=== PATIENT | male | born 2005 | race Hispanic/Latino ===

== ENCOUNTER 2025-06-11 11:58 | Emergency (ER) | payer SELFPAY ==
[~2025-06-11] VITALS: Ht 167.6 cm; Wt 99.8 kg
--- NOTE | 2025-06-11 12:19 | ERN ---
ED Note History of Present Illness Stated Complaint: NECK PAIN Chief Complaint: Neck Pain Time Seen by MD: 12:00 Dictation: PATIENT IS A 19-YEAR-OLD MALE COMING IN TODAY WITH HIS GIRLFRIEND WITH COMPLAINTS OF HAVING SOME PAIN TO HIS ANTERIOR NECK LOWER HE HAS HAD FOR ONE WE EK. HE DENIES ANY TRAUMA NO FEVER NO CHILLS NO PAINFUL SWALLOWING. STATES HE IS CONCERNED THAT HE MIGHT HAVE CANCER BECAUSE HIS MOTHER AND GRANDFATHER OF CANCER. 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 NO PALPABLE MASS INTEGUMENTARY: NEGATIVE EXCEPT FOR HPI NEUROLOGICAL/PSYCH: NEGATIVE EXCEPT FOR HPI HEMATOLOGIC/LYMPHATIC: NEGATIVE EXCEPT FOR HPI ALL SYSTEMS NEGATIVE, EXCEPT NOTED ABOVE. 13 POINT REVIEW OF SYSTEMS ASSESSED AND ALL NEGATIVE EXCEPT FOR ABOVE. Initial Vital Sign VS Vital Signs Date Time Temp Pulse Resp B/P (MAP) Pulse Ox O2 Delivery O2 Flow Rate FiO2 06/11/25 12:00 98.4 93 16 126/72 97 Room Air 0 Physical Exam Dictation VITAL SIGNS REVIEWED GENERAL APPEARANCE: ALERT, ORIENTED X 3, NO ACUTE DISTRESS, WELL DEVELOPED, NOURISHED. ANXIOUS HEAD AND FACE: NON-TRAUMATIC. EYES: PERRL, PINK CONJUNCTIVAS, EYELID NO TRAUMA, ANTERIOR CHAMBER WITH ARCUS SENILIS. EARS: PINNAS INTACT AND NO SIGNS OF TRAUMA OR ERYTHEMA EAR CANALS CLEAR AND NO DISCHARGE TM NO ERYTHEMA NOSE: NO DISCHARGE, NO BLEEDING. OROPHARYNX: MOUTH NORMAL, TONGUE PINK, VOICE IS CLEAR PHARYNX CLEAR,NO ERYTHEMA, TONSILS NO EXUDATES, NO ABSCESSES NOTED, MUCOUS MEMBRANE MOIST NECK: SUPPLE, MILD TENDERNESS TO THE ANTERIOR CERVICAL NECK INFERIORLY. NO THYROMEGALY, NO MASSES, NO JVD, NO BRUITS NO ERYTHEM NO INDURATION. BREAST:DEFERRED CHEST:NO TENDERNESS, NO CREPITUS, NO PARADOXICAL MOVEMENT, NO RETRACTIONS LUNGS:CLEAR, WELL-VENTILATED, SYMMETRIC, NO RALES, NO WHEEZING, NO RHONCHI, NO STRIDOR, GOOD BREATH SOUNDS BILATERALLY HEART: REGULAR RATE, REGULAR RHYTHM, NO MURMUR, NO GALLOPS VASCULAR: NO PERIPHERAL EDEMA, ABDOMEN: SOFT, POSITIVE BOWEL SOUNDS, NONDISTENDED, NO GUARDING, NONTENDER, NO REBOUND, NO MASSES NO HEPATOMEGALY, NO SPLENOMEGALY, NO GUEVARA'S SIGN, NO HERNIAS. RECTAL: DEFERRED GENITAL: DEFERRED NEUROLOGICAL: NORMAL SPEECH, MOTOR FUNCTION INTACT, SENSORY FUNCTION INTACT MUSCULOSKELETAL: NECK NONTENDER, FULL RANGE OF MOTION, BACK NONTENDER, FULL RANGE OF MOTION, EXTREMITIES: NONTENDER, FULL RANGE OF MOTION SKIN: COLOR PINK, DRY, NO TURGOR, NO RASH, NO LACERATIONS, NO ABRASIONS, NO CONTUSIONS. LYMPHATIC: DEFERRED Results (Laboratory/Radiology) Laboratory/Radiology EXAM: US examination, one body part CLINICAL HISTORY: TENDERNESS TO ANTERIOR LOWER CERVICAL NECK. NO PALPABLE LESION TECHNIQUE: Real-time ultrasound examination performed with image documentation. COMPARISON: None provided. FINDINGS: Soft Tissue Structures: Few hypoechoic structures, possibly lymph nodes, are seen in the supraclavicular area. The largest measures approximately 5 x 5 x 6 mm. No abnormal internal architecture or necrosis is noted within these nodes. No evidence of matting or conglomeration. No other significant soft tissue mass or collection is identified. IMPRESSION: 1. Few small hypoechoic structures in the supraclavicular area, likely benign lymph nodes. 2. No significant soft tissue mass or collection identified. /[facility] Reviewed?: Yes ED Course ED Course Orders Procedure Category Date Status Time Us Soft Tissue Neck US 06/11/25 Resulted 12:17 Vital Signs Date Time Temp Pulse Resp B/P (MAP) Pulse Ox O2 Delivery O2 Flow Rate FiO2 06/11/25 12:00 98.4 93 16 126/72 97 Room Air 0 Medical Decision Making [facility] 1405/MEDICAL DISCHARGE MAKING BASED ON ULTRASOUND OF ANTERIOR NECK ONLY. PATIENT HAS A LOCALIZE LYMPHADENOPATHY. WE WILL BE GIVEN A LIST OF LOCAL DOCTORS TO FOLLOW UP IN THE NEXT 1-2 DAYS FOR MANAGEMENT DX & DISP Disposition: Discharge Departure Impression: Primary Impression: Cervical lymphadenopathy Condition: Stable Additional Instructions: FOLLOW-UP WITH PRIMARY CARE PROVIDER IN 1 TO 2 DAYS. TAKE MEDICATIONS DIRECTED HERE IN THE EMERGENCY ROOM. OKAY TO CONTINUE HOME MEDICATIONS UNLESS OTHERWISE DISCUSSED DURING YOUR VISIT IN THE EMERGENCY ROOM TODAY. RETURN TO YOUR NEAREST EMERGENCY ROOM IF SYMPTOMS WORSEN OR IF THERE IS NO IMPROVEMENT. CALL 911 IF YOU NEED IMMEDIATE ASSISTANCE. TAKE TYLENOL OR MOTRIN [id number] NEEDED AND IF NO CONTRAINDICATIONS ARE PRESENT. INCREASE ORAL HYDRATION. A WOUND CULTURE OR URINE CULTURE WAS ORDERED HERE IN THE EMERGENCY ROOM DEPARTMENT PLEASE FOLLOW-UP WITH PRIMARY CARE PROVIDER AND ADVISE THEM TO GET REPEAT PORTS FROM OUR FACILITY. IF YOU HAD ANY SIMON WRAP/SPLINTS THAT WERE APPLIED HERE, PLEASE DO NOT REMOVE THEM UNTIL YOU SEE YOUR PRIMARY CARE OR SPECIALTY. TYLENOL OR ADVIL [id number] NEEDED FOR PAIN. FOLLOW UP WITH ONE OF THE DOCTORS ON THE LIST PROVIDED YOU IN THE NEXT 1-2 DAYS FOR MANAGEMENT Time of Disposition: 14:09 I have reviewed the case, and I agree with, Diagnosis and Plan NATALEE TEMPLETON NP Jun 11, 2025 12:19
--- NOTE | 2025-06-11 13:36 | HMCIMG ---
EXAM: US examination, one body part CLINICAL HISTORY: TENDERNESS TO ANTERIOR LOWER CERVICAL NECK. NO PALPABLE LESION TECHNIQUE: Real-time ultrasound examination performed with image documentation. COMPARISON: None provided. FINDINGS: Soft Tissue Structures: Few hypoechoic structures, possibly lymph nodes, are seen in the supraclavicular area. The largest measures approximately 5 x 5 x 6 mm. No abnormal internal architecture or necrosis is noted within these nodes. No evidence of matting or conglomeration. No other significant soft tissue mass or collection is identified. IMPRESSION: 1. Few small hypoechoic structures in the supraclavicular area, likely benign lymph nodes. 2. No significant soft tissue mass or collection identified. /Tay
[2025-06-11 15:05] VITALS: BP 113/59; PULSE 69; RESP 16; TEMP 98.8; O2SAT 97
== END 2025-06-11 15:07 | disposition home or self-care (01) ==
LOC: EDH 11:58
DX: R59.0 Localized enlarged lymph nodes (principal); M54.2 Cervicalgia
CPT/HCPCS: 76536; 99284